=== PATIENT | female | born 1985 | race Asian ===

== ENCOUNTER 2018-07-05 09:05 | Observation (INO) | payer OTHER ==
[~2018-07-05] VITALS: Ht 163 cm; Wt 60.0 kg
[2018-07-05] MEDS ORDERED: PNV1TABL54 PO (09:42)
[2018-07-05 09:43] VITALS: BP 108/59
== END 2018-07-05 13:55 | disposition home or self-care (01) ==
LOC: 4S 09:05
PROVIDERS: ADMIT Obstetrics & Gynecology; ATTEND Obstetrics & Gynecology
DX: Z34.03 Encounter for supervision of normal first pregnancy, third trimester (principal); Z3A.39 39 weeks gestation of pregnancy
CPT/HCPCS: 59025

== ENCOUNTER 2018-07-07 12:15 | Inpatient (IN) | payer OTHER ==
[~2018-07-07] VITALS: Ht 154.9 cm; Wt 61.2 kg
[~2018-07-07 12:15] MED LIST: PNV1TABL54 PO
[2018-07-07] MEDS ORDERED: RINGERS SOLUTION,LACTATED 1,000 ML IV PRN (15:25)
[2018-07-07] MEDS ORDERED: METHYLERGONOVINE MALEATE 0.2 MG/ML VIAL IM PRN (15:30)
[2018-07-07] MEDS ORDERED: FentaNYL CITRATE-PF 100 MCG/2 ML VIAL IVP PRN (15:30)
[2018-07-07] MEDS ORDERED: METOCLOPRAMIDE HCL 5 MG/ML 2 ML VIAL IVP PRN (15:30)
[2018-07-07] MEDS ORDERED: CITRIC ACID/SODIUM CITRATE 30 ML SOLUTION UDCUP PO PRN (15:30)
[2018-07-07 15:58] LABS: BASOPHILS % (AUTO) 0.5 % (0.0-2.0); EOSINOPHILS % (AUTO) 0.5 % (1.0-6.0); HEMATOCRIT 34.5 % (36-46); HEMOGLOBIN 11.9 g/dL (12.0-16.0); LYMPHOCYTES % (AUTO) 20.3 % (22.0-44.0); MEAN CORPUSCULAR HGB CONC 34.7 G/dL (31.0-37.0); MEAN CORPUSCULAR VOLUME 98 fL (80-100); MONOCYTES # (AUTO) 0.7 K/uL (0.1-1.0); MONOCYTES % (AUTO) 7.6 % (2.0-9.0); NEUTROPHILS # (AUTO) 6.9 K/uL (1.8-7.7); NEUTROPHILS % (AUTO) 71.1 % (40.0-70.0); PLATELET COUNT (AUTO)-OB 206 K/uL (150-450); RED BLOOD CELL COUNT(AUTO) 3.51 MIL/uL (4.00-5.20)
[2018-07-07] MEDS ORDERED: OXYTOCIN 30 UNITS/LACT RINGERS 500 ML IV PRN (16:17)
[2018-07-07] MEDS ORDERED: ROPIVACAINE HCL/PF 0.2% 100 ML ED ONE (16:21)
[2018-07-07] MEDS ORDERED: ONDANSETRON HCL 4 MG/2 ML VIAL IVP PRN (17:00)
[2018-07-07] MEDS ORDERED: DiphenhydrAMINE HCL 50 MG/ML VIAL IVP PRN (17:00)
[2018-07-07] MEDS: RINGERS SOLUTION,LACTATED 1,000 ML IV SCH (17:49)
[2018-07-07 18:03] VITALS: BP 107/59
[2018-07-07] MEDS ORDERED: OXYGEN THERAPY IH SCH (20:00)
[2018-07-07] MEDS: ROPIVACAINE HCL/PF 0.2% 100 ML ED PRN (23:35)
[2018-07-08] MEDS: RINGERS SOLUTION,LACTATED 1,000 ML IV SCH ×2 (01:37→05:21)
[2018-07-08] MEDS: ROPIVACAINE HCL/PF 0.2% 100 ML ED PRN (07:04)
[2018-07-08] MEDS ORDERED: RINGERS SOLUTION,LACTATED 1,000 ML IV ONE (10:39)
[2018-07-08] MEDS ORDERED: LANOLIN 7 GM OINTMENT TP PRN (10:45)
[2018-07-08] MEDS ORDERED: OxyCODONE HCL/ACETAMINOPHEN 5-325 MG TABLET PO PRN (10:45)
[2018-07-08] MEDS ORDERED: MEASLES/MUMPS/RUBELLA VACCINE, LIVE 0.5 ML/VIAL SQ ONE (10:45)
[2018-07-08] MEDS: BENZOCAINE 20%/MENTHOL 56 GM SPRAY CANISTER TP PRN (11:47)
[2018-07-08] MEDS: GLYCERIN/WITCH HAZEL LEAF 40 PADS JAR TP PRN (11:47)
[2018-07-08] MEDS: IBUPROFEN 600 MG TABLET PO PRN ×2 (11:48→23:54)
[2018-07-08] MEDS: OxyCODONE HCL/ACETAMINOPHEN 5-325 MG TABLET PO PRN ×2 (16:48→23:54)
[2018-07-08] MEDS: MAGNESIUM HYDROXIDE SUSPENSION 30 ML UDCUP PO SCH (20:16)
[2018-07-09] MEDS: MAGNESIUM HYDROXIDE SUSPENSION 30 ML UDCUP PO SCH (09:35)
[2018-07-09] MEDS: OxyCODONE HCL/ACETAMINOPHEN 5-325 MG TABLET PO PRN (09:35)
[2018-07-09] MEDS: IBUPROFEN 600 MG TABLET PO PRN (09:35)
[2018-07-09] MEDS ORDERED: IBUP-2070 PO (10:56)
[2018-07-09] MEDS ORDERED: DSS100 PO (10:57)
[2018-07-09] MEDS: BENZOCAINE 20%/MENTHOL 56 GM SPRAY CANISTER TP PRN (12:47)
[2018-07-09] MEDS: GLYCERIN/WITCH HAZEL LEAF 40 PADS JAR TP PRN (12:47)
== END 2018-07-09 12:52 | disposition home or self-care (01) | DRG 807 ==
LOC: 4S 12:15 → INTOOBSV 12:15 → OBSVTOIN 12:15 → UNDOADMOB 12:15 → OBSVTOIN 15:07 → 4S 15:07
PROVIDERS: ADMIT Obstetrics & Gynecology; ATTEND Obstetrics & Gynecology
PROC: 10E0XZZ Delivery of Products of Conception, External Approach (ICD-10-PCS; principal; 2018-07-08)
PROC: 0KQM0ZZ Repair Perineum Muscle, Open Approach (ICD-10-PCS; 2018-07-08)
PROC: 3E0R3BZ Introduction of Anesthetic Agent into Spinal Canal, Percutaneous Approach (ICD-10-PCS; 2018-07-08)
PROC: 00HU33Z Insertion of Infusion Device into Spinal Canal, Percutaneous Approach (ICD-10-PCS; 2018-07-08)
DX: O77.0 Labor and delivery complicated by meconium in amniotic fluid (principal); Z37.0 Single live birth; O70.1 Second degree perineal laceration during delivery; Z3A.39 39 weeks gestation of pregnancy
CPT/HCPCS: 86850; 86900; 86901; J2590; J2795; J7120